=== PATIENT | female | born 1970 | race Caucasian/White ===

== ENCOUNTER 2016-12-07 11:21 | Day surgery (SDC) | payer BC, OTHER ==
[~2016-12-07] VITALS: Ht 162.6 cm; Wt 61.2 kg
[~2016-12-07 11:21] MED LIST: BUPR75TA5 PO; CICL0.776 EX; D31000TA PO; FLUC100T PO; LIDOCAINE W/EPINEPHRINE 1% 20ML VIAL As Ordered ONE; METHYLENE BLUE 0.5% (5MG/ML) 10 ML AMP (PROVAYBLUE)(Q9968 PER 1MG) As Ordered ONE; OMEP40CA2 PO; OXYMETAZOLINE NASAL SPRAY (AFRIN) As Ordered ONE; RANI15TA PO; ZANT300T PO
[2016-12-07] MEDS ORDERED: LR 1,000 ML IV SCH ×2 (11:30→14:30)
[2016-12-07] MEDS ORDERED: fentaNYL 250 MCG/5 ML INJECTION (J3010) As Ordered ONE (11:32)
[2016-12-07] MEDS ORDERED: LIDOCAINE 2% INJ 100 MG/5 ML SDV (FOR ANES.) As Ordered ONE (11:32)
[2016-12-07] MEDS ORDERED: ROCURONIUM BROMIDE 50 MG/5 ML VIAL As Ordered ONE (11:32)
[2016-12-07] MEDS ORDERED: MIDAZOLAM INJ 2 MG/2 ML VIAL (J2250) As Ordered ONE (11:32)
[2016-12-07] MEDS ORDERED: PROPOFOL 200 MG/20 ML VIAL As Ordered ONE (11:32)
[2016-12-07] MEDS ORDERED: METHYLENE BLUE 0.5% (5MG/ML) 10 ML AMP (PROVAYBLUE)(Q9968 PER 1MG) As Ordered ONE (12:08)
[2016-12-07] MEDS ORDERED: GLYCOPYRROLATE INJ 0.2 MG/ML 2 ML VIAL As Ordered ONE (12:51)
[2016-12-07] MEDS ORDERED: dexameTHASONE 4 MG/ML 1ML VIAL (J1100) As Ordered ONE (12:51)
[2016-12-07] MEDS ORDERED: NEOSTIGMINE 1MG/ML 5 ML SYRINGE (J2710) As Ordered ONE (12:51)
[2016-12-07] MEDS ORDERED: ONDANSETRON 4MG/2ML VIAL (J2405) As Ordered ONE (12:51)
[2016-12-07] MEDS ORDERED: PERCOCET 5MG/325MG TAB As Ordered ONE (14:07)
[2016-12-07] MEDS ORDERED: HYDROmorphone HCL 1 MG/ML SYRINGE (J1170) IV PRN (14:30)
[2016-12-07] MEDS ORDERED: ONDANSETRON 4MG/2ML VIAL (J2405) IV PRN (14:30)
[2016-12-07] MEDS ORDERED: PERCOCET 5MG/325MG TAB PO PRN ×2 (14:30→14:45)
[2016-12-07] MEDS ORDERED: fentaNYL 100 MCG/2 ML INJECTION (J3010) IV PRN (14:30)
[2016-12-07 15:25] VITALS: BP 131/64
--- NOTE | 2016-12-08 08:41 | RO ---
DATE OF PROCEDURE: 12/07/2016 PREPROCEDURE DIAGNOSES: 1. Deviated septum. 2. Chronic rhinitis with hypertrophic turbinates. POSTPROCEDURE DIAGNOSES: 1. Deviated septum. 2. Chronic rhinitis with hypertrophic turbinates. PROCEDURE: Septoplasty and partial reduction of inferior turbinates. SURGEON: Dr. Jitendra Hadley FREIGHT BROKER: ANESTHESIA: INDICATIONS: This is a 46-year-old with a history of chronic nasal obstruction. DESCRIPTION OF PROCEDURE: Satisfactory general endotracheal anesthesia administered. The nose was prepared for surgery by placing cotton-soaked pledgets with Afrin solution to the nasal cavity bilaterally. 1% Xylocaine with 1:100,000 epinephrine was used to inject into the nasal septum and inferior turbinates. A Devaughn incision was made on the left side of the nose. A mucoperichondrial flap and envelope was created on the left side of the nasal septum and carried down to the junction of the bony and cartilaginous septum. This was then with an elevator, and an envelope was then created on the right side of the septum. A Darinel scissors was used to make a cut high in the perpendicular plate in the midportion of the vomer, and a central segment of the bony septum was resected. Next, with the round knife on the German elevator, a strip of cartilage was resected from the floor of the nose, mobilizing the quadrilateral cartilage and creating a swinging door. Then, a central segment of cartilaginous septum was resected, preserving a 1 cm dorsal and caudal strut. Double-action rongeur was used to take down deflected portions of the perpendicular plate, as well. Finally, the maxillary crest spur was taken down after elevating mucoperiosteum off both sides of it with a chisel. A segment of the resected cartilage was morselized and placed back into the septal envelope. The incision was closed using an interrupted 5-0 chromic suture. Then, a 4-0 plain suture was placed in a [id number] fashion through the two leaves of mucoperichondrium to appose them. Next, the inferior turbinates were medially infractured. A #15 blade was used to make an incision on the anterior tip of the inferior turbinate. With a [place] elevator, a mucoperiosteal tunnel was created on the medial side of the turbinate. Then, the microdebrider with a 2.9 mm blade was inserted into the tunnel, and the underlying turbinate bone was weakened and partially resected using the microdebrider. Then, the turbinate was laterally outfractured. The posteroinferior tip of the turbinate was then cauterized with suction cautery. Finally, Puri splints were placed into the nose and sewn to the columella with a 2-0 Prolene suture. The pharyngeal pack which had been placed at the beginning of the procedure was removed, the throat was suctioned. The patient was then awakened, extubated, and sent to recovery in satisfactory condition. She will be discharged home on Percocet for pain and doxycycline 100 mg twice a day, and she will be seen back in the office in 3 days for splint removal.
== END 2016-12-07 15:40 | disposition home or self-care (01) ==
LOC: M SDC 11:21
PROVIDERS: ATTEND Specialist
DX: J34.2 Deviated nasal septum (principal); J31.0 Chronic rhinitis; J34.3 Hypertrophy of nasal turbinates; K21.9 Gastro-esophageal reflux disease without esophagitis; F17.210 Nicotine dependence, cigarettes, uncomplicated; S91.301D Unspecified open wound, right foot, subsequent encounter; R06.83 Snoring; Z79.899 Other long term (current) drug therapy; Z90.710 Acquired absence of both cervix and uterus